=== PATIENT | female | born 1970 | race Caucasian/White ===

== ENCOUNTER → 2020-03-03 | Outpatient (CLI) | payer OTHER ==
--- NOTE | 2020-03-07 14:08 | MM ---
Reason for exam: screening (asymptomatic). Last mammogram was performed 3 years and 11 months ago. History: Patient had first child at age 32. Taking hormonal contraceptives for 2 years. Physical Findings: A clinical breast exam by your physician is recommended on an annual basis and results should be correlated with mammographic findings. MG Screening Mammo w CAD Bilateral CC, MLO, and XCCL view(s) were taken. Prior study comparison: April 04, 2016, bilateral MG 3d screening mammo w/cad. The breast tissue is heterogeneously dense. This may lower the sensitivity of mammography. No significant changes when compared with prior studies. ASSESSMENT: Benign, BI-RAD 2 RECOMMENDATION: Routine screening mammogram of both breasts in 1 year.
== END | disposition home or self-care (01) ==
LOC: RADMAMWWP 07:21
PROVIDERS: ATTEND Obstetrics & Gynecology
DX: Z12.31 Encounter for screening mammogram for malignant neoplasm of breast (principal)
CPT/HCPCS: 77067

== ENCOUNTER → 2021-03-07 | Outpatient (CLI) | payer OTHER | END | disposition home or self-care (01) | LOC: LABWHC1 13:31 | PROVIDERS: ATTEND Obstetrics & Gynecology | DX: N83.209 Unspecified ovarian cyst, unspecified side (principal) | CPT/HCPCS: 36415 ==

== ENCOUNTER → 2021-03-13 | Outpatient (CLI) | payer OTHER ==
--- NOTE | 2021-03-14 11:38 | MM ---
Reason for exam: screening (asymptomatic). Last mammogram was performed 1 year ago. History: Patient had first child at age 32. Taking hormonal contraceptives for 2 years. Physical Findings: A clinical breast exam by your physician is recommended on an annual basis and results should be correlated with mammographic findings. MG Screening Mammo w CAD Bilateral CC and MLO view(s) were taken. Prior study comparison: March 03, 2020, bilateral MG screening mammo w CAD. April 04, 2016, bilateral MG 3d screening mammo w/cad. The breast tissue is heterogeneously dense. This may lower the sensitivity of mammography. Focal asymmetry 6mm posterior upper right breast 6cm from nipple. ASSESSMENT: Incomplete: need additional imaging evaluation, BI-RAD 0 RECOMMENDATION: Special view mammogram of the right breast. If lesion persists on supplemental views, image directed ultrasound is recommended. [facility] will attempt to contact patient to return for supplemental views and ultrasound if indicated.
== END | disposition home or self-care (01) ==
LOC: RADMAMWWP 07:21
PROVIDERS: ATTEND Obstetrics & Gynecology
DX: Z12.31 Encounter for screening mammogram for malignant neoplasm of breast (principal)
CPT/HCPCS: 77067

== ENCOUNTER → 2021-03-18 | Outpatient (CLI) | payer OTHER ==
[2021-03-18 09:12] LABS: HCT 38.8 % (34.0-46.0); HGB 13.8 gm/dL (11.4-16.0); MCH 34.4 pg (25.0-35.0); MCHC 35.6 g/dL (31.0-37.0); MCV 96.8 fL (80.0-100.0); Mean Platelet Volume 7.9; Platelet Count 257 k/uL (150-450); RBC 4.01 m/uL (3.80-5.40); RDW 12.5 % (11.5-15.5); WBC 5.6 k/uL (3.8-10.6)
[2021-03-18 09:22] LABS: African American GFR (CKD) >90 (>60 ml/min/1.73 sqM); Anion Gap 6 mmol/L; Blood Urea Nitrogen 14 mg/dL (7-17); Carbon Dioxide 25 mmol/L (22-30); Chloride 107 mmol/L (98-107); Glucose 111 mg/dL (74-99); Non-African American GFR(CKD) >90 (>60 ml/min/1.73 sqM); Potassium 4.3 mmol/L (3.5-5.1); Sodium 138 mmol/L (137-145)
== END | disposition home or self-care (01) ==
LOC: LABPAT 08:26
PROVIDERS: ATTEND Obstetrics & Gynecology
DX: Z01.812 Encounter for preprocedural laboratory examination (principal)
CPT/HCPCS: 80051; 82565; 82947; 84520; 85027; 87086

== ENCOUNTER → 2021-03-22 | Outpatient (CLI) | payer OTHER ==
--- NOTE | 2021-03-23 12:06 | MM ---
Reason for exam: additional evaluation requested from abnormal screening. Last mammogram was performed less than 1 month ago. History: Patient had first child at age 32. Taking hormonal contraceptives for 2 years. Physical Findings: Nurse did not find any significant physical abnormalities on exam. MG Work Up Mamm w CAD RT Spot compression CC, spot compression MLO, and ML view(s) were taken of the right breast. Prior study comparison: March 13, 2021, bilateral MG screening mammo w CAD. March 03, 2020, bilateral MG screening mammo w CAD. The breast tissue is heterogeneously dense. This may lower the sensitivity of mammography. Focal asymmetry at 1 o'clock incompletely disperses. These results were verbally communicated with the patient and result sheet given to the patient on 03/22/21. ASSESSMENT: Incomplete: need additional imaging evaluation, BI-RAD 0 RECOMMENDATION: Ultrasound of the right breast. (11-2 o'clock)
--- NOTE | 2021-03-23 12:08 | USB ---
Reason for exam: additional evaluation requested from abnormal screening. History: Patient had first child at age 32. Taking hormonal contraceptives for 2 years. US Breast Workup Limited RT Technologist: Shruthi Whitmore Right limited breast ultrasound including focal area of concern, retroareolar and axilla demonstrates a 1.2 x 0.8 x 0.9cm suspected island of fat embedded with an island of dense tissue at 12 o'clock, 6 month follow up recommended and a 0.4 x 0.5 x 0.2cm cystic, benign lesion at 12 o'clock. Scanned 11-2 o'clock. These results were verbally communicated with the patient and result sheet given to the patient on 03/22/21. ASSESSMENT: Probably benign, BI-RAD 3 RECOMMENDATION: Follow-up diagnostic mammogram and ultrasound of the right breast in 6 months.
== END | disposition home or self-care (01) ==
LOC: RADMAMWWP 13:46
PROVIDERS: ATTEND Obstetrics & Gynecology
DX: N60.01 Solitary cyst of right breast (principal); N64.89 Other specified disorders of breast
CPT/HCPCS: 36415; 77065; 86850; 86900; 86901

== ENCOUNTER 2021-03-28 05:55 | Inpatient (IN) | payer OTHER ==
[2021-03-24 17:41] VITALS: BMI 25.8
[2021-03-28] MEDS ORDERED: MIDAZOLAM 2 MG/2 ML VIAL IV PRN (06:01)
[2021-03-28] MEDS ORDERED: DEXAMETHASONE SOD PHOSPHATE 4 MG/ML 1 ML VIAL IV ONE (06:01)
[2021-03-28] MEDS ORDERED: LIDOCAINE 1% (10MG/ML) FOR IV START INTRADERMA PRN (06:01)
[2021-03-28] MEDS ORDERED: ONDANSETRON 4 MG/2 ML VIAL IVP ONE (06:01)
[2021-03-28] MEDS: LACTATED RINGERS 1,000 ML IV SCH ×2 (06:48→10:17)
[2021-03-28] MEDS ORDERED: HYDROmorphone 0.5 MG/0.5 ML SYRINGE IVP PRN (07:00)
[2021-03-28] MEDS ORDERED: GLYCOPYRROLATE 0.2 MG/ML 2 ML VIAL ONE (07:24)
[2021-03-28] MEDS ORDERED: KETOROLAC 15 MG/ML 1 ML VIAL ONE (07:24)
[2021-03-28] MEDS ORDERED: ePHEDrine 50 MG/ML 1 ML AMP ONE (07:24)
[2021-03-28] MEDS ORDERED: fentaNYL (PF) 50 MCG/ML 2 ML AMP ONE (07:24)
[2021-03-28] MEDS ORDERED: PROPOFOL 10 MG/ML 20 ML VIAL IV ONE (07:24)
[2021-03-28] MEDS ORDERED: SUCCINYLCHOLINE CHLORIDE 100 MG/5 ML SYR IV ONE (07:24)
[2021-03-28] MEDS ORDERED: ROCURONIUM 10 MG/ML (5 ML VIAL) IV ONE (07:24)
[2021-03-28] MEDS ORDERED: NEOSTIGMINE 1 MG/ML 10 ML VIAL ONE (07:24)
[2021-03-28] MEDS ORDERED: LIDOCAINE 1% INJ 10MG/ML (20 ML MDV) ONE (07:24)
[2021-03-28] MEDS ORDERED: PHENYLEPHRINE-0.9% NACL SYG 1,000 MCG/10 ML SYRINGE ONE (07:24)
[2021-03-28] MEDS ORDERED: MIDAZOLAM 2 MG/2 ML VIAL ONE (07:24)
[2021-03-28] MEDS ORDERED: LACTATED RINGERS 1,000 ML IV ONE (08:28)
[2021-03-28] MEDS ORDERED: diphenhydrAMINE 50 MG/ML 1 ML VIAL IVP PRN (08:30)
[2021-03-28] MEDS ORDERED: METOCLOPRAMIDE 5 MG/ML 2 ML VIAL IVP PRN (08:30)
[2021-03-28] MEDS ORDERED: KETOROLAC 15 MG/ML 1 ML VIAL IVP PRN (08:30)
[2021-03-28] MEDS ORDERED: Acetaminophen-Codeine 300-30mg TAB PO PRN (08:30)
[2021-03-28] MEDS ORDERED: ONDANSETRON 4 MG/2 ML VIAL IVP PRN (08:30)
[2021-03-28] MEDS ORDERED: HYDROmorphone PCA 10 MG/50 ML BAG IV PRN (08:34)
[2021-03-28] MEDS ORDERED: NALOXONE 0.4 MG/ML 1 ML VIAL IV PRN (08:34)
--- NOTE | 2021-03-28 08:42 | P.OP ---
Date of Procedure: 03/28/21 Preoperative Diagnosis: #1. Large complex ovarian mass Postoperative Diagnosis: #1. Large left ovarian complex mass Procedure(s) Performed: #1. Exploratory laparotomy #2. Left salpingo-oophorectomy Anesthesia: CATARINA Surgeon: Sawyer Mulligan Vest Tailor #1: Lili Randall Estimated Blood Loss (ml): 15 IV fluids (ml): 900 Urine output (ml): 200 Pathology: other (Left tube and ovary, pelvic washings) Condition: stable Disposition: PACU Operative Findings: Intraoperatively, the patient was found to have a very large, approximately 12- 15 cm smooth and benign-appearing ovarian mass originating from the left side which was free and mobile. It was removed intact and sent for pathological diagnoses. The uterus, right tube and ovary were normal to inspection. Description of Procedure: The patient was prepped and draped in usual fashion after general endotracheal anesthesia was administered by the anesthesiologist. A small Pfannenstiel incision was made and extended into the abdominal cavity without difficulty. Irrigation was poured into the pelvis upon noting the large ovarian mass and removed with a Lukey trap to be sent for pathological diagnoses. Attempts to deliver the large left ovarian mass through the incision were unsuccessful secondary to its size. As a result, the incision was widened enough to allow for the mass to just be delivered through after placing a Ann Marie self-retaining retractor. This allowed isolation of the left adnexal pedicle including the fallopian tube and infundibular pelvic ligament. A Natasha-Quinton clamp was placed across the entire pedicle followed by one just above it allowing the specimen to be removed from the patient and sent for pathological diagnoses. The pedicle was then suture-ligated with a transfixion stitch of 0 Vicryl followed by a free tie of 0 Vicryl. Hemostasis was excellent. The remainder of the pelvis was then explored with a normal uterine and right ovarian tubal findings. The pedicle was reexamined and found to be hemostatic. All instrumentation was then removed after irrigation. The layer of muscles was examined and made hemostatic with the Bovie. The fascia was closed with 2 running stitches of 0 Vicryl proceeding from the lateral margins to the midpoint. The subcutaneous tissues were made hemostatic with the Bovie and not closed as they were very thin. The skin was closed with a running subcuticular stitch of 4-0 Vicryl followed by half-inch Steri-Strips placed with Mastisol. Estimated blood loss for the case is approximately 15 mL. There were no complications. All sponge, instrument, and needle counts were correct. The patient tolerated the procedure well and proceeded to the recovery room in stable condition.
[2021-03-28 13:08] LABS: MCH 34.3 pg (25.0-35.0); MCHC 34.4 g/dL (31.0-37.0); MCV 99.6 fL (80.0-100.0); Mean Platelet Volume 8.1; Platelet Count 238 k/uL (150-450); RBC 3.51 m/uL (3.80-5.40); RDW 11.6 % (11.5-15.5); WBC 14.6 k/uL (3.8-10.6)
[2021-03-28] MEDS: IBUPROFEN 600 MG TAB PO PRN (16:29)
[2021-03-28] MEDS: SENNOSIDES-DOCUSATE SODIUM 1 EACH TAB PO SCH (22:00)
[2021-03-28] MEDS: Acetaminophen-Codeine 300-30mg TAB PO PRN (22:05)
[2021-03-29 01:14] LABS: Basophils % (A) 0 %; Eosinophils # (A) 0.1 k/uL (0-0.7); Eosinophils % (A) 1 %; HCT 29.1 % (34.0-46.0); Lymphocytes # (A) 1.4 k/uL (1.0-4.8); Lymphocytes % (A) 13 %; MCHC 33.9 g/dL (31.0-37.0); MCV 100.5 fL (80.0-100.0); Mean Platelet Volume 9.9; Monocytes # (A) 0.8 k/uL (0-1.0); Monocytes % (A) 8 %; Neutrophils # (A) 8.4 k/uL (1.3-7.7); Neutrophils % (A) 77 %; Platelet Count 163 k/uL (150-450); RBC 2.89 m/uL (3.80-5.40); RDW 11.8 % (11.5-15.5)
[2021-03-29 01:16] LABS: HGB 9.8 gm/dL (11.4-16.0)
[2021-03-29] MEDS: Acetaminophen-Codeine 300-30mg TAB PO PRN (04:41)
[2021-03-29] MEDS: SIMETHICONE 80 MG CHEWABLE PO PRN ×2 (07:56→19:55)
[2021-03-29] MEDS: IBUPROFEN 600 MG TAB PO PRN ×2 (07:56→19:55)
[2021-03-29] MEDS: LACTATED RINGERS 1,000 ML IV SCH ×2 (08:26→08:27)
--- NOTE | 2021-03-29 09:02 | P.PN ---
Subjective Progress Note Date: 03/29/21 the patient had a second episode of hypotension 1 attempting to get out of bed last night. She feels entirely normal this morning and actually admits to flatus of and feels hungry. Aside from the episodes of hypotension, she has had no complaints. Her pain is well-controlled. Objective - Vital Signs Vital signs: Vital Signs Temp 98.5 F 03/29/21 08:00 Pulse 72 03/29/21 08:00 Resp 16 03/29/21 08:00 BP 95/58 03/29/21 08:00 Pulse Ox 97 03/29/21 08:00 Intake & Output 03/28/21 03/29/21 03/29/21 18:59 06:59 18:59 Intake Total 1050 0 Output Total 1665 1100 250 Balance -615 -1100 -250 Intake: IV 1050 Blood Product 0 Rc As-1 Unit 0 [id number] Output: Urine 1650 1100 250 Uretheral (Thomason) 600 250 Estimated Blood Loss 15 Other: Voiding Method Indwelling Catheter Indwelling Catheter - Exam in general, this is a well-developed, well-nourished white female in no acute distress. Her heart has a regular rhythm and rate without murmur. Her lungs are clear to auscultation bilaterally in all falk. Her abdomen is nondistended, has normal active bowel sounds, is soft, appropriately tender and minimally so. There are no palpable masses nor is any guarding or rebound. Her extremities are without any cyanosis, clubbing, or edema and are nontender to palpation bilaterally. - Labs CBC & Chem 7: 03/29/21 00:43 Labs: Abnormal Lab Results - Last 24 Hours (Table) 03/28/21 03/29/21 03/29/21 Range/Units 12:47 00:43 02:20 WBC 14.6 H 11.0 H (3.8-10.6) k/uL RBC 3.51 L 2.89 L (3.80-5.40) m/uL Hgb 9.8 L D (11.4-16.0) gm/dL Hct 29.1 L (34.0-46.0) % MCV 100.5 H (80.0-100.0) fL Neutrophils # 8.4 H (1.3-7.7) k/uL Crossmatch See Detail Assessment and Plan (1) Complex ovarian cyst Current Visit: Yes Status: Acute Code(s): N83.299 - OTHER OVARIAN CYST, UNSPECIFIED SIDE SNOMED Code(s): 810436186793 Plan: there is no good explanation for the hypotension that she has had. The ovary hemoglobin did drop to 9.8 last evening, I suspect that this is primarily delusional in nature. In either case she did receive 1 unit of packed red blood cells overnight and hemoglobin this morning is pending. We will make every attempt to get her up, out of bed, and ambulating on a regular basis. Otherwise, she will have her diet advanced to regular. Should she be able to be up and ambulatory as well as having pain controlled with oral pain medications and tolerating regular diet, there is a possibility of discharge home later today though this is less likely given her episodes of hypotension. I would anticipate discharge home by tomorrow morning pending no further complications.
[2021-03-29 10:34] LABS: Basophils # (A) 0.1 k/uL (0-0.2); Basophils % (A) 1 %; Eosinophils # (A) 0.1 k/uL (0-0.7); Eosinophils % (A) 1 %; HGB 11.5 gm/dL (11.4-16.0); Lymphocytes # (A) 1.7 k/uL (1.0-4.8); Lymphocytes % (A) 19 %; MCH 34.1 pg (25.0-35.0); MCHC 34.8 g/dL (31.0-37.0); MCV 97.8 fL (80.0-100.0); Mean Platelet Volume 8.3; Monocytes # (A) 0.6 k/uL (0-1.0); Monocytes % (A) 7 %; Neutrophils # (A) 6.6 k/uL (1.3-7.7); Neutrophils % (A) 73 %; Platelet Count 212 k/uL (150-450); RBC 3.37 m/uL (3.80-5.40); RDW 12.2 % (11.5-15.5)
[2021-03-29] MEDS: SENNOSIDES-DOCUSATE SODIUM 1 EACH TAB PO SCH (13:06)
[2021-03-29 13:49] LABS: ALT 11 U/L (4-34); AST 18 U/L (14-36); African American GFR (CKD) >90 (>60 ml/min/1.73 sqM); Alkaline Phosphatase 39 U/L (38-126); Anion Gap 4 mmol/L; Blood Urea Nitrogen 8 mg/dL (7-17); Calcium 8.3 mg/dL (8.4-10.2); Carbon Dioxide 25 mmol/L (22-30); Chloride 106 mmol/L (98-107); Glucose 104 mg/dL (74-99); Non-African American GFR(CKD) >90 (>60 ml/min/1.73 sqM); Potassium 3.8 mmol/L (3.5-5.1); Sodium 135 mmol/L (137-145); Total Bilirubin 0.8 mg/dL (0.2-1.3); Total Protein 5.3 g/dL (6.3-8.2)
--- NOTE | 2021-03-29 14:13 | CT ---
EXAMINATION TYPE: CT brain wo con DATE OF EXAM: 03/29/2021 HISTORY: Dizziness, syncopal episodes, hypotension CT DLP: 1100 mGycm. Automated Exposure Control for Dose Reduction was Utilized. TECHNIQUE: CT scan of the head is performed without contrast. COMPARISON: None. FINDINGS: There is no acute intracranial hemorrhage or midline shift identified. Ventricles and sul ci are within normal limits in size for patient's age. Sanford-white matter differentiation maintained. No suspicious opacification mastoid air cells. The globes are intact and the visualized sinuses are clear. IMPRESSION: Unremarkable study.
--- NOTE | 2021-03-29 14:17 | CT ---
EXAMINATION TYPE: CT chest angio for PE DATE OF EXAM: 03/29/2021 COMPARISON: NONE HISTORY: Dizziness, syncopal episodes, hypotension, recent surgery. CT DLP: 432 mGycm. Automated Exposure Control for Dose Reduction was Utilized. CONTRAST: CTA scan of the thorax is performed with IV Contrast, patient injected with 100, 34 ml wasted mL of I sovue 370, pulmonary embolism protocol. MIP Images are created on CT scanner and reviewed. FINDINGS: LUNGS: Tiny right pleural effusion. Posterior lower lobe atelectasis and/or less likely acute consoli dation. No pneumothorax seen bilaterally. No additional focal consolidation or groundglass opacity. MEDIASTINUM: There is a suboptimal study with most dense contrast in SVC and near equal contrast in r ight and left heart systems. There is some heterogeneity in the periphery but no convincing evidence for acute pulmonary embolism. No thoracic aortic aneurysm or dissection. There are no greater than 1 cm hilar or mediastinal lymph nodes. No cardiomegaly or pericardial effusion is seen. OTHER: Small amount of ascites surrounding visualized portion of liver and spleen and small degree of pneumoperitoneum correlated with history of recent intra-abdominal surgery for ovarian cysts. IMPRESSION: Suboptimal study without acute pulmonary embolism. Trace right pleural effusion with depe ndent atelectasis in both lower lobes.
[2021-03-29] MEDS: SODIUM CHLORIDE 0.9% 1,000 ML IV SCH (14:25)
--- NOTE | 2021-03-29 14:31 | P.CONS ---
History of Present Illness - Reason for Consult Consult date: 03/29/21 - History of Present Illness Patient admitted to the hospital for ovarian cyst removal and we will consulted for orthostatic hypotension and presyncopal episode patient did have an episode of hypotension orthostatic and felt dizzy and question about chest pain and shortness of breath that currently resolved Review of systems and systems has been reviewed all negative and positive findings as per history of present illness Constitutional: No acute distress, conversant, pleasant Eyes: Anicteric sclerae, moist conjunctiva, no lid-lag PERRLA ENMT: NC/AT Oropharynx clear, no erythema, exudates Neck: Supple, FROM, no masses, or JVD No carotid bruits No thyromegaly Lungs: Clear to auscultation Clear to percussion Normal respiratory effort, no accessory muscle use Cardiovascular: Heart regular in rate and rhythm, No murmurs, gallops, or rubs No peripheral edema Abdominal: Soft Nontender, no guarding, rebound or rigidity Abdomen moving with respiration Normoactive bowel sounds No hepatomegaly, No splenomegaly No palp able mass No abdominal wall hernia noted Skin: Normal temperature, tone, texture, turgor No induration No subcutaneous nodules No rash, lesions No ulcers Extremities: No digital cyanosis No clubbing Pedal pulses intact and symmetrical Radial pulses intact and symmetrical Normal gait and station No calf tenderness Psychiatric:Alert and oriented to person, place and time Appropriate affect Intact judgement Neuro: Muscles Strength 5/5 in all 4 extremities Sensation to light touch grossly present throughout Cranial nerves II-XII grossly intact No focal sensory deficits Assessment and plan Orthostatic hypotension and dizziness currently resolved We will check computed tomography scan of the lungs to rule out PE since the patient did have an episode of shortness of breath We'll check EKG and troponins We'll check computed tomography scan of the brain Will monitor CBC Doubt acute coronary syndrome at this time Continue to monitor overnight Past Medical History Additional Past Medical History / Comment(s): 15 CM OVARAIN CYST History of Any Multi-Drug Resistant Organisms: None Reported Additional Past Surgical History / Comment(s): CERVICAL VAPORIZATION AGE 18 Past Anesthesia/Blood Transfusion Reactions: No Reported Reaction Past Psychological History: No Psychological Hx Reported Smoking Status: Current some day smoker Past Alcohol Use History: Occasional Additional Past Alcohol Use History / Comment(s): SMOKES 1-2 CIGARETTES A MONTH Past Drug Use History: None Reported - Past Family History Father Family Medical History: Cancer Sister(s) Family Medical History: Blood Disorder Additional Family Medical History / Comment(s): FACTOR V LEIDEN Medications and Allergies Home Medications Medication Instructions Recorded Confirmed Type No Known Home Medications 03/24/21 03/28/21 History Allergies Allergy/AdvReac Type Severity Reaction Status Date / Time bee venom protein (honey bee) AdvReac Anaphylaxis Verified 03/28/21 06:19 Physical Exam Vitals: Vital Signs Temp Pulse Pulse Pulse Resp BP BP 03/29/21 12:00 98.7 F 71 16 03/29/21 11:00 03/29/21 10:52 71 69/38 03/29/21 10:45 03/29/21 08:00 98.5 F 72 16 03/29/21 05:11 98.6 F 71 16 98/60 03/29/21 04:41 98.2 F 71 16 97/61 03/29/21 04:31 98.9 F 69 16 93/56 03/29/21 04:30 98.9 F 72 16 03/29/21 00:42 77 03/29/21 00:20 80 03/29/21 00:10 73 03/29/21 00:00 98.7 F 86 16 03/28/21 20:00 98.6 F 83 16 03/28/21 17:00 78 18 03/28/21 16:30 77 18 03/28/21 16:08 77 18 03/28/21 15:31 72 18 03/28/21 15:10 76 16 03/28/21 14:52 98.6 F 83 18 03/28/21 14:38 83 16 BP Pulse Ox 03/29/21 12:00 107/69 99 03/29/21 11:00 103/62 03/29/21 10:52 03/29/21 10:45 100/61 03/29/21 08:00 95/58 97 03/29/21 05:11 03/29/21 04:41 03/29/21 04:31 97 03/29/21 04:30 93/56 98 03/29/21 00:42 80/52 03/29/21 00:20 75/40 03/29/21 00:10 70/37 03/29/21 00:00 92/54 98 03/28/21 20:00 98/62 03/28/21 17:00 102/65 100 03/28/21 16:30 107/66 100 03/28/21 16:08 112/65 100 03/28/21 15:31 109/60 100 03/28/21 15:10 86/42 99 03/28/21 14:52 92/58 100 03/28/21 14:38 103/61 99 Intake and Output 03/28/21 03/29/21 03/29/21 22:59 06:59 14:59 Intake Total 0 Output Total 2300 1050 Balance -2300 0 -1050 Intake: Blood Product 0 Rc As-1 Unit 0 [id number] Output: Urine 2300 1050 Uretheral (Thomason) 600 1050 Other: Voiding Method Indwelling Catheter Indwelling Catheter Results CBC & Chem 7: 03/29/21 09:22 03/29/21 13:04 Labs: Abnormal Lab Results - Last 24 Hours (Table) 03/29/21 03/29/21 03/29/21 Range/Units 00:43 02:20 09:22 WBC 11.0 H (3.8-10.6) k/uL RBC 2.89 L 3.37 L (3.80-5.40) m/uL Hgb 9.8 L D (11.4-16.0) gm/dL Hct 29.1 L 33.0 L (34.0-46.0) % MCV 100.5 H (80.0-100.0) fL Neutrophils # 8.4 H (1.3-7.7) k/uL Sodium (137-145) mmol/L Glucose (74-99) mg/dL Calcium (8.4-10.2) mg/dL Total Protein (6.3-8.2) g/dL Albumin (3.5-5.0) g/dL Crossmatch See Detail 03/29/21 Range/Units 13:04 WBC (3.8-10.6) k/uL RBC (3.80-5.40) m/uL Hgb (11.4-16.0) gm/dL Hct (34.0-46.0) % MCV (80.0-100.0) fL Neutrophils # (1.3-7.7) k/uL Sodium 135 L (137-145) mmol/L Glucose 104 H (74-99) mg/dL Calcium 8.3 L (8.4-10.2) mg/dL Total Protein 5.3 L (6.3-8.2) g/dL Albumin 3.0 L (3.5-5.0) g/dL Crossmatch
[2021-03-29 15:44] LABS: Creatine Kinase MB 1.2 ng/mL (0.0-2.4)
[2021-03-30] MEDS: Acetaminophen-Codeine 300-30mg TAB PO PRN (00:36)
[2021-03-30] MEDS: SENNOSIDES-DOCUSATE SODIUM 1 EACH TAB PO SCH ×2 (00:46→09:39)
[2021-03-30] MEDS: LACTATED RINGERS 1,000 ML IV SCH (03:38)
[2021-03-30] MEDS: SODIUM CHLORIDE 0.9% 1,000 ML IV SCH ×2 (04:18→09:39)
[2021-03-30 07:32] VITALS: BP 103/60; PULSE 75; RESP 18; TEMP 98
--- NOTE | 2021-03-30 08:28 | P.PN ---
Subjective Progress Note Date: 03/30/21 Principal diagnosis: Status post laparotomy, left salpingo-oophorectomy, paroxysmal hypotension The patient reports feeling significantly better today. She feels as if she could end up and walk this morning and was prepared to do so last night. She is apparently had no episodes of hypotension overnight but has not been out of the bed. She is tolerating a regular diet and performing all other activities of daily living though she cannot ambulate to the bathroom yet secondary to the hypotension. Objective - Vital Signs Vital signs: Vital Signs Temp 98 F 03/30/21 07:31 Pulse 75 03/30/21 07:31 Resp 18 03/30/21 07:31 BP 103/60 03/30/21 07:31 Pulse Ox 97 03/30/21 07:31 Intake & Output 03/29/21 03/30/21 03/30/21 18:59 06:59 18:59 Intake Total 810 1140 Output Total 2050 1000 Balance -1240 140 Intake: Intake, IV Titration 500 600 Amount Lactated Ringers 1,000 ml 500 @ 100 mls/hr IV .Q10H KATHY Rx#:[id number] Sodium Chloride 0.9% 1, 600 000 ml @ 100 mls/hr IV . Q10H KATHY Rx#:[id number] Oral 540 Blood Product 310 Rc As-1 Unit 310 [id number] Output: Urine 2050 1000 Uretheral (Thomason) 2050 - Exam In general, the patient is a well-developed well-nourished white female in no acute distress. She appears quite comfortable in bed. Her abdomen is nondistended, soft, essentially nontender despite her postoperative status, and without masses, guarding, or rebound. The incision is clean, dry, and intact. Her extremities are without any cyanosis, clubbing, or edema and are nontender to palpation bilaterally. - Labs CBC & Chem 7: 03/29/21 09:22 03/29/21 13:04 Labs: Abnormal Lab Results - Last 24 Hours (Table) 03/29/21 03/29/21 03/29/21 Range/Units 02:20 09:22 13:04 RBC 3.37 L (3.80-5.40) m/uL Hct 33.0 L (34.0-46.0) % Sodium 135 L (137-145) mmol/L Glucose 104 H (74-99) mg/dL Calcium 8.3 L (8.4-10.2) mg/dL Total Creatine Kinase (30-135) U/L Total Protein 5.3 L (6.3-8.2) g/dL Albumin 3.0 L (3.5-5.0) g/dL Crossmatch See Detail 03/29/21 Range/Units 15:06 RBC (3.80-5.40) m/uL Hct (34.0-46.0) % Sodium (137-145) mmol/L Glucose (74-99) mg/dL Calcium (8.4-10.2) mg/dL Total Creatine Kinase 213 H (30-135) U/L Total Protein (6.3-8.2) g/dL Albumin (3.5-5.0) g/dL Crossmatch Assessment and Plan (1) Complex ovarian cyst Current Visit: Yes Status: Acute Code(s): N83.299 - OTHER OVARIAN CYST, UNSPECIFIED SIDE SNOMED Code(s): 056899502201 Plan: Every effort must be made to get the patient up today and ambulatory. As soon as she is able to able to the bathroom, fully catheter should be discontinued. Given her clinical appearance this morning, I would anticipate discharge home later today pending her ability to ambulate without hypotension or other side effects. I have decreased her IV to TKO as she is tolerating regular diet. We will have internal medicine check on her and concur with the plan to ambulate this morning prior to attempting it. Should she be able to ambulate normally, I have given her discharge instructions. I greatly appreciate the input from internal medicine and look forward to their further recommendations.
--- NOTE | 2021-03-30 10:49 | P.PN ---
Subjective Progress Note Date: 03/30/21 Principal diagnosis: Patient feels much better today no chest pain no shortness of breath no hypotension Constitutional: No acute distress, conversant, pleasant Eyes: Anicteric sclerae, moist conjunctiva, no lid-lag PERRLA ENMT: NC/AT Oropharynx clear, no erythema, exudates Neck: Supple, FROM, no masses, or JVD No carotid bruits No thyromegaly Lungs: Clear to auscultation Clear to percussion Normal respiratory effort, no accessory muscle use Cardiovascular: Heart regular in rate and rhythm, No murmurs, gallops, or rubs No peripheral edema Abdominal: Soft Nontender, no guarding, rebound or rigidity Abdomen moving with respiration Normoactive bowel sounds No hepatomegaly, No splenomegaly No palpable mass No abdominal wall hernia noted Skin: Normal temperature, tone, texture, turgor No induration No subcutaneous nodules No rash, lesions No ulcers Extremities: No digital cyanosis No clubbing Pedal pulses intact and symmetrical Radial pulses intact and symmetrical Normal gait and station No calf tenderness Psychiatric:Alert and oriented to person, place and time Appropriate affect Intact judgement Neuro: Muscles Strength 5/5 in all 4 extremities Sensation to light touch grossly present throughout Cranial nerves II-XII grossly intact No focal sensory deficits Orthostatic hypotension transiently clinically resolved no further testing is needed inpatient at this time patient is okay to be discharged home Follow-up with primary care physician as an outpatient No evidence of PE or acute coronary syndrome or clinical CVA Patient cleared to be discharged home no further inpatient testing is negative this time Objective - Vital Signs Vital signs: Vital Signs Temp 98 F 03/30/21 07:31 Pulse 75 03/30/21 07:31 Resp 18 03/30/21 07:31 BP 103/60 03/30/21 07:31 Pulse Ox 97 03/30/21 07:31 Intake & Output 03/29/21 03/30/21 03/30/21 18:59 06:59 18:59 Intake Total 810 1140 Output Total 2050 1000 Balance -1240 140 Intake: Intake, IV Titration 500 600 Amount Lactated Ringers 1,000 ml 500 @ 100 mls/hr IV .Q10H KATHY Rx#:[id number] Sodium Chloride 0.9% 1, 600 000 ml @ 100 mls/hr IV . Q10H KATHY Rx#:[id number] Oral 540 Blood Product 310 Rc As-1 Unit 310 [id number] Output: Urine 2049 999 Uretheral (Thomason) 2049 - Labs CBC & Chem 7: 03/29/21 09:22 03/29/21 13:04 Labs: Abnormal Lab Results - Last 24 Hours (Table) 03/29/21 03/29/21 03/29/21 Range/Units 02:20 13:04 15:06 Sodium 135 L (137-145) mmol/L Glucose 104 H (74-99) mg/dL Calcium 8.3 L (8.4-10.2) mg/dL Total Creatine Kinase 213 H (30-135) U/L Total Protein 5.3 L (6.3-8.2) g/dL Albumin 3.0 L (3.5-5.0) g/dL Crossmatch See Detail
--- NOTE | 2021-03-30 11:59 | P.DS ---
Providers Date of admission: 03/28/21 05:55 Expected date of discharge: 03/30/21 Attending physician: Sawyer Mulligan Consults: 03/29/21 11:18 Consult Physician Urgent Consulting Provider: Lucita Sanchez Consult Reason/Comments: orthostatic hypotension Do you want consulting provider notified?: Yes Primary care physician: Stated None - Discharge Diagnosis(es) (1) Complex ovarian cyst Current Visit: Yes Status: Acute Hospital Course: The patient is a 51-year-old 1 para 1001 admitted after findings incidentally of a roughly 15 cm complex left ovarian cyst though it site of origin was unknown at the time of ultrasound. She underwent laboratory testing with ova 1 which demonstrated low likelihood of malignancy. As a result, she was counseled and brought to the operating room where she underwent exploratory laparotomy with left salpingo-oophorectomy and pelvic washings. Pathology has since returned with benign findings of the pelvic washings are pending at this time. Her post operative course was complicated by multiple successive incidence of paroxysmal hypotension each time the patient tried to rise from laying to standing. Workup for potential for ongoing bleeding or blood loss was entirely negative. It was initially thought to be secondary to vasovagal causes. At the time of the second occurrence, the on-call physician ordered a transfusion of 1 unit of packed red blood cells given the patient's symptomatology alone and a hemoglobin of 9.8 at that time. As it continued through the morning of postoperative day #1, internal medicine consultation was sought with sound physicians who ordered a CAT scan evaluation of both head and chest which were entirely negative. All laboratory workup was additionally negative. She was ultimately transferred to telemetry testing where she remained in normal sinus rhythm throughout. On the morning of postoperative day #2 after she had been tolerating regular diet for 24 full hours, she was able to stand without any evidence of hypotension or symptomatology. Thomason catheter was discontinued and evaluation both from my perspective and from the perspective of internal medicine is that she is stable for discharge. She therefore was discharged home on postoperative day #2 to follow-up in my office in 2 weeks for an incision check and 6 weeks routinely. She was recommended to follow up with her primary care doctor over the next 2 weeks as well. Discharge instructions included calling for any significantly increased fever, abdominal pain, incisional complaints, signs or symptoms of orthostasis, or anything also concerned her. She is additionally instructed to do no heavy lifting over the next 6 weeks and to abstain from driving until off of all pain medications or 2 weeks' time, whichever comes first. She understood her instructions and agrees follow up as noted above. Discharge medications included [id number] analgesic pain medications as well as a prescription for Tylenol No. 3, 1-2 by mouth every 6 hours care and pain, #20 dispensed with no refills. Discharge hemoglobin and hematocrit were 11.5 and 33.0 respectively. Procedures: #1. Exploratory laparotomy with left salpingo-oophorectomy and pelvic washings #2. Transfusion of 1 unit packed red blood cells #3. Internal medicine consultation #4. CT of the head and chest #5. Remote telemetry Patient Condition at Discharge: Stable Plan - Discharge Summary Discharge Rx Participant: Yes New Discharge Prescriptions: No Action No Known Home Medications Discharge Medication List No Known Home Medications 03/24/21 [History] Follow up Appointment(s)/Referral(s): Sawyer Mulligan MD [STAFF PHYSICIAN] - 2 Weeks Discharge Disposition: HOME SELF-CARE
== END 2021-03-30 13:15 | disposition home or self-care (01) | DRG 743 ==
LOC: 2ORMAIN 05:55 → 4FBP 09:18 → 6NMEDSUR 03-30 00:05
PROVIDERS: ADMIT Obstetrics & Gynecology; ATTEND Obstetrics & Gynecology
PROC: 0UT10ZZ Resection of Left Ovary, Open Approach (ICD-10-PCS; 2021-03-28)
PROC: 0UT60ZZ Resection of Left Fallopian Tube, Open Approach (ICD-10-PCS; principal; 2021-03-28 07:30)
PROC: 30233N1 Transfusion of Nonautologous Red Blood Cells into Peripheral Vein, Percutaneous Approach (ICD-10-PCS; 2021-03-29)
DX: N83.292 Other ovarian cyst, left side (principal); F17.200 Nicotine dependence, unspecified, uncomplicated; I95.1 Orthostatic hypotension
CPT/HCPCS: 36415; 70450; 71275; 80053; 81025; 82550; 82553; 84484; 85025; 85027; 86850; 86900; 86901; 86920; 88108; 88305; 88307; 93005

== ENCOUNTER → 2021-04-15 | Outpatient (CLI) | payer OTHER ==
[2021-04-15 17:33] LABS: Eosinophils # (A) 0.21 X 10*3/uL (0.04-0.35); Eosinophils % (A) 4.3 %; HCT 41.9 % (37.2-46.3); HGB 13.4 g/dL (12.0-15.0); Lymphocytes % (A) 36.7 %; Mean Platelet Volume 10.7 fL (9.5-12.2); Monocytes # (A) 0.54 X 10*3/uL (0.20-1.00); Neutrophils # (A) 2.24 X 10*3/uL (1.80-7.70); Neutrophils % (A) 45.8 %; Platelet Count 345 X 10*3/uL (140-440); RBC 4.19 X 10*6/uL (4.10-5.20); RDW 12.3 % (11.5-14.5)
[2021-04-15 18:27] LABS: ALT 21 U/L (8-44); AST 17 U/L (13-35); African American GFR (CKD) 99.8 (60.0-200.0); Albumin 4.4 g/dL (3.8-4.9); Albumin/Globulin Ratio 1.88 (1.60-3.17); Alkaline Phosphatase 72 U/L (41-126); Blood Urea Nitrogen 18.9 mg/dL (9.0-27.0); Calcium 9.9 mg/dL (8.7-10.3); Carbon Dioxide 24.3 mmol/L (20.0-27.5); Chloride 104 mmol/L (96-109); Chol/HDL Ratio 2.87 Ratio; Globulin 2.4 g/dL (1.6-3.3); Glucose 85 mg/dL (70-110); LDL Cholesterol,Calculated 78.5 mg/dL (0.0-131.0); Non-African American GFR(CKD) 86.1 (60.0-200.0); Potassium 4.6 mmol/L (3.5-5.5); Sodium 137 mmol/L (135-145); Total Protein 6.8 g/dL (6.2-8.2)
== END | disposition home or self-care (01) ==
LOC: LABWHC1 08:46
PROVIDERS: ATTEND Family Medicine
DX: Z00.00 Encounter for general adult medical examination without abnormal findings (principal); Z83.2 Family history of diseases of the blood and blood-forming organs and certain disorders involving the immune mechanism
CPT/HCPCS: 36415; 80053; 80061; 81241; 84443; 85025

== ENCOUNTER → 2022-03-16 | Outpatient (CLI) | payer OTHER ==
[2022-03-16 11:04] LABS: Basophils # (A) 0.07 X 10*3/uL (0.00-0.10); Basophils % (A) 1.2 %; Eosinophils # (A) 0.42 X 10*3/uL (0.04-0.35); Eosinophils % (A) 7.2 %; HCT 41.2 % (37.2-46.3); HGB 13.5 g/dL (12.0-15.0); Immature Grans, Automated 0.2 %; Lymphocytes # (A) 1.97 X 10*3/uL (0.90-5.00); Lymphocytes % (A) 33.7 %; MCH 32.2 pg (27.0-32.0); MCHC 32.8 g/dL (32.0-37.0); MCV 98.3 fL (80.0-97.0); Monocytes # (A) 0.63 X 10*3/uL (0.20-1.00); Monocytes % (A) 10.8 %; NRBC Per 100 WBC 0 /100 WBCS (0.0-0.0); Neutrophils # (A) 2.75 X 10*3/uL (1.80-7.70); Neutrophils % (A) 46.9 %; Platelet Count 271 X 10*3/uL (140-440); RBC 4.19 X 10*6/uL (4.10-5.20); RDW 12.3 % (11.5-14.5); WBC 5.85 X 10*3/uL (4.50-10.00)
[2022-03-16 11:24] LABS: ALT 19 U/L (8-44); AST 17 U/L (13-35); African American GFR (CKD) 85.2 (60.0-200.0); Albumin 4.3 g/dL (3.8-4.9); Albumin/Globulin Ratio 1.87 (1.60-3.17); Alkaline Phosphatase 63 U/L (41-126); BUN/Creat Ratio 22.22 Ratio (12.00-20.00); Calcium 9.3 mg/dL (8.7-10.3); Carbon Dioxide 23.8 mmol/L (20.0-27.5); Chloride 107 mmol/L (96-109); Globulin 2.3 g/dL (1.6-3.3); Glucose 96 mg/dL (70-110); Non-African American GFR(CKD) 73.5 (60.0-200.0); Potassium 4.4 mmol/L (3.5-5.5); Sodium 140 mmol/L (135-145); Total Bilirubin <0.15 mg/dL (0.30-1.20); Total Protein 6.6 g/dL (6.2-8.2)
[2022-03-16 11:35] LABS: Chol/HDL Ratio 2.18 Ratio
--- NOTE | 2022-03-19 08:06 | MM ---
Reason for Exam: Screening (asymptomatic). Last screening mammogram was performed 12 month(s) ago. Patient History: Menarche at age 13. First Full-Term at age 32. Late child-bearing (after 30). Hormonal Contraceptives for 2 years from age 40 until age 50. Risk Values: Michelle 5 year model risk: 1.5%. NCI Lifetime model risk: 11.8%. Prior Study Comparison: 03/03/2020 Bilateral Screening Mammogram, [facility]. 03/13/2021 Bilateral Screening Mammogram, [facility]. 03/22/2021 Right Diagnostic Mammogram, [facility]. Tissue Density: The breast tissue is heterogeneously dense. This may lower the sensitivity of mammography. Findings: Analyzed By CAD. There is no suspicious group of microcalcifications or new suspicious mass in either breast. Stable chronic nodularity within both breasts. No significant change from prior exams. Overall Assessment: Benign, BI-RAD 2 Management: Screening Mammogram of both breasts in 1 year. A clinical breast exam by your physician is recommended on an annual basis and results should be correlated with mammographic findings. Electronically signed and approved by: Efrain Simmons D.O.
== END | disposition home or self-care (01) ==
LOC: RADMAMWWP 07:07
PROVIDERS: ATTEND Family Medicine
DX: Z00.00 Encounter for general adult medical examination without abnormal findings (principal); Z12.31 Encounter for screening mammogram for malignant neoplasm of breast
CPT/HCPCS: 77067; 80053; 80061; 83721; 84443; 85025

== ENCOUNTER → 2023-03-02 | Outpatient (CLI) | payer OTHER ==
[2023-03-02 14:08] LABS: Basophils # (A) 0.07 X 10*3/uL (0.00-0.10); Basophils % (A) 1.3 %; Eosinophils # (A) 0.25 X 10*3/uL (0.04-0.35); Eosinophils % (A) 4.5 %; HCT 44.2 % (37.2-46.3); HGB 14.6 d/dL (12.0-15.0); Lymphocytes # (A) 1.98 X 10*3/uL (0.90-5.00); MCH 32.2 pg (27.0-32.0); MCV 97.6 FL (80.0-97.0); Mean Platelet Volume 11.3 FL (9.5-12.2); Monocytes # (A) 0.55 X 10*3/uL (0.20-1.00); NRBC Per 100 WBC 0 X 10*3/uL (0.00-0.01); Neutrophils # (A) 2.63 X 10*3/uL (1.80-7.70); Neutrophils % (A) 47.8 %; Platelet Count 301 X 10*3/uL (140-440); RBC 4.53 X 10*6/uL (4.10-5.20); RDW 12.1 % (11.5-14.5)
[2023-03-02 14:22] LABS: ALT 15 U/L (8-44); AST 16 U/L (13-35); Albumin 4.5 d/dL (3.8-4.9); Albumin/Globulin Ratio 1.96 Ratio (1.60-3.17); Alkaline Phosphatase 71 U/L (41-126); BUN/Creat Ratio 15.56 Ratio (12.00-20.00); Calcium 10.2 mg/dL (8.7-10.3); Carbon Dioxide 26.4 mmol/L (21.6-31.8); Chloride 105 mmol/L (96-109); Chol/HDL Ratio 2.42 Ratio; Globulin 2.3 d/dL (1.6-3.3); Glucose 92 mg/dL (70-110); LDL Cholesterol,Calculated 74.1 mg/dL (0.0-131.0); Potassium 5.4 mmol/L (3.5-5.5); Sodium 141 mmol/L (135-145); Total Bilirubin 0.4 mg/dL (0.3-1.2); Total Protein 6.8 d/dL (6.2-8.2)
== END | disposition home or self-care (01) ==
LOC: LABWHC1 08:05
PROVIDERS: ATTEND Family Medicine
DX: Z00.00 Encounter for general adult medical examination without abnormal findings (principal)
CPT/HCPCS: 36415; 80053; 80061; 84443; 85025

== ENCOUNTER → 2023-06-12 | Outpatient (CLI) | payer OTHER ==
--- NOTE | 2023-06-12 20:03 | MM ---
Reason for Exam: Screening (asymptomatic). Last mammogram was performed 1 year(s) and 2 month(s) ago. Patient History: Menarche at age 13. First Full-Term at age 32. Late child-bearing (after 30). Hormonal Contraceptives for 2 years from age 40 until age 50. Last menstrual period: 06/09/2023 Risk Values: Michelle 5 year model risk: 1.5%. NCI Lifetime model risk: 11.6%. Prior Study Comparison: 03/13/2021 Bilateral Screening Mammogram, [facility]. 03/22/2021 Right Diagnostic Mammogram, [facility]. 03/16/2022 Bilateral MG screening mammo w CAD, [facility]. Tissue Density: The breast tissue is heterogeneously dense. This may lower the sensitivity of mammography. Findings: Analyzed By CAD. Unchanged bilateral asymmetric densities. There is no suspicious group of microcalcifications or new suspicious mass in either breast. Overall Assessment: Benign, BI-RAD 2 Management: Screening Mammogram of both breasts in 1 year. . Patient should continue monthly self-breast exams. A clinical breast exam by your physician is recommended on an annual basis. This exam should not preclude additional follow-up of suspicious palpable abnormalities. Note on Michelle scores and lifetime risk: 1. A Michelle score greater than 3% is considered moderate risk. If this is the case, consider specialist referral to assess eligibility for a risk reducing agent. 2. If overall lifetime risk for the development of breast cancer is 20% or higher, the patient may qualify for future screening with alternating mammogram and breast MRI. Electronically signed and approved by: Dm Kraft M.D. Radiologist
== END | disposition home or self-care (01) ==
LOC: RADMAMWWP 06:54
PROVIDERS: ATTEND Family Medicine
DX: Z12.31 Encounter for screening mammogram for malignant neoplasm of breast (principal)
CPT/HCPCS: 77063; 77067

== ENCOUNTER → 2024-02-28 | Outpatient (CLI) | payer OTHER ==
[2024-02-28 10:45] LABS: Basophils # (A) 0.06 X 10*3/uL (0.00-0.10); Basophils % (A) 1.2 %; Eosinophils % (A) 4.1 %; HCT 43.2 % (37.2-46.3); HGB 14.6 g/dL (12.0-15.0); Lymphocytes # (A) 1.77 X 10*3/uL (0.90-5.00); Lymphocytes % (A) 35.9 %; MCH 31.7 pg (27.0-32.0); MCHC 33.8 g/dL (32.0-37.0); MCV 93.7 FL (80.0-97.0); Mean Platelet Volume 11.1 FL (9.5-12.2); Monocytes # (A) 0.54 X 10*3/uL (0.20-1.00); NRBC Per 100 WBC 0 X 10*3/uL (0.00-0.01); Neutrophils # (A) 2.35 X 10*3/uL (1.80-7.70); Neutrophils % (A) 47.6 %; Platelet Count 252 X 10*3/uL (140-440); RBC 4.61 X 10*6/uL (4.10-5.20); RDW 11.9 % (11.5-14.5); WBC 4.93 X 10*3/uL (4.50-10.00)
[2024-02-28 10:51] LABS: ALT 16 U/L (8-44); AST 21 U/L (13-35); Albumin 4.5 g/dL (3.8-4.9); Albumin/Globulin Ratio 1.88 Ratio (1.60-3.17); Alkaline Phosphatase 71 U/L (41-126); BUN/Creat Ratio 20.11 Ratio (12.00-20.00); Blood Urea Nitrogen 18.1 mg/dL (9.0-27.0); Calcium 9.7 mg/dL (8.7-10.3); Carbon Dioxide 22.4 mmol/L (21.6-31.8); Chloride 104 mmol/L (96-109); Chol/HDL Ratio 2.67 Ratio; Globulin 2.4 g/dL (1.6-3.3); Glucose 98 mg/dL (70-110); LDL Cholesterol,Calculated 100.4 mg/dL (0.0-131.0); Potassium 4.4 mmol/L (3.5-5.5); Sodium 138 mmol/L (135-145); Total Bilirubin 0.5 mg/dL (0.3-1.2); Total Protein 6.9 g/dL (6.2-8.2); VLDL Calculation 11.56 mg/dL (5.00-40.00)
== END | disposition home or self-care (01) ==
LOC: LABWHC1 07:35
PROVIDERS: ATTEND Family Medicine
DX: Z00.00 Encounter for general adult medical examination without abnormal findings (principal)
CPT/HCPCS: 36415; 80053; 80061; 84443; 85025

== ENCOUNTER → 2024-06-15 | Outpatient (CLI) | payer OTHER ==
--- NOTE | 2024-06-15 08:19 | MM ---
Reason for Exam: Screening (asymptomatic). Last mammogram was performed 1 year(s) and 1 month(s) ago. Patient History: Menarche at age 13. First Full-Term at age 32. Late child-bearing (after 30). Postmenopausal. Hormonal Contraceptives for 2 years from age 40 until age 50. Last menstrual period: Risk Values: Michelle 5 year model risk: 1.6%. NCI Lifetime model risk: 11.4%. Prior Study Comparison: 03/22/2021 Right Diagnostic Mammogram, [facility]. 03/16/2022 Bilateral MG screening mammo w CAD, [facility]. 06/12/2023 Bilateral MG 3D screening mammo w/cad, [facility]. Tissue Density: The breasts are heterogeneously dense, which may obscure small masses. Findings: Analyzed By CAD. Stable loosely grouped tiny benign appearing round calcifications laterally in the right breast. There is no suspicious new group of microcalcifications or new suspicious mass in either breast. Overall Assessment: Benign, BI-RAD 2 Management: Screening Mammogram of both breasts in 1 year. . Patient should continue monthly self-breast exams. A clinical breast exam by your physician is recommended on an annual basis. This exam should not preclude additional follow-up of suspicious palpable abnormalities. Note on Michelle scores and lifetime risk: 1. A Michelle score greater than 3% is considered moderate risk. If this is the case, consider specialist referral to assess eligibility for a risk reducing agent. 2. If overall lifetime risk for the development of breast cancer is 20% or higher, the patient may qualify for future screening with alternating mammogram and breast MRI. [facility], , 06/15/2024 8:16 AM. Electronically signed and approved by: Juan Baker M.D.
== END | disposition home or self-care (01) ==
LOC: RADMAMWWP 07:18
PROVIDERS: ATTEND Family Medicine
DX: Z12.31 Encounter for screening mammogram for malignant neoplasm of breast (principal); R92.333 Mammographic heterogeneous density, bilateral breasts; Z78.0 Asymptomatic menopausal state; R92.1 Mammographic calcification found on diagnostic imaging of breast
CPT/HCPCS: 77063; 77067